=== PATIENT | female | born 1985 | race Caucasian/White ===

== ENCOUNTER → 2017-10-20 | Outpatient (CLI) | payer OTHER ==
[~2017-10-20] MED LIST: BCPILLS PO; CIPR-255 PO
== END | disposition home or self-care (01) ==
LOC: C.LABSPEC 15:42
PROVIDERS: ATTEND Obstetrics & Gynecology
DX: Z34.82 Encounter for supervision of other normal pregnancy, second trimester (principal); Z3A.00 Weeks of gestation of pregnancy not specified

== ENCOUNTER → 2017-10-26 | Outpatient (CLI) | payer OTHER ==
[2017-10-26 14:37] LABS: BASO % 0.1 %; BASO ABS # 0.01 K/uL (0-0.2); EOS % 0.5 %; EOS ABS # 0.05 K/uL (0-0.5); HEMATOCRIT 34.9 % (37-47); HEMOGLOBIN 11.9 g/dL (12.0-16.0); IG# 0.19 K/uL (0.00-0.02); LYMPH % 21.2 %; LYMPH ABS # 2.32 K/uL (1.2-3.4); MEAN CELL VOLUME 93.6 fL (80-100); MEAN CORPUSCULAR HEMOGLOBIN 31.9 pg (25-34); MEAN CORPUSCULAR HGB CONC 34.1 g/dl (32-36); MEAN PLATELET VOLUME 10.6 fL (7.4-10.4); MONO % 5.2 %; MONO ABS # 0.57 K/uL (0.11-0.59); NEUT % 71.3 %; NEUT ABS # 7.79 K/uL (1.4-6.5); PLATELET COUNT 160 K/uL (130-400); RED CELL DISTRIBUTION WIDTH CV 13.3 % (11.5-14.5); RED CELL DISTRIBUTION WIDTH SD 45.8 fL (36.4-46.3); WHITE BLOOD COUNT 10.93 K/uL (4.8-10.8)
== END | disposition home or self-care (01) ==
LOC: C.LAB1850 13:04
PROVIDERS: ATTEND Obstetrics & Gynecology
DX: Z34.81 Encounter for supervision of other normal pregnancy, first trimester (principal)

== ENCOUNTER 2018-01-04 23:39 | Inpatient (IN) | payer OTHER ==
[~2018-01-04] VITALS: Ht 165.1 cm; Wt 91.0 kg
[2018-01-04] MEDS ORDERED: LACTATED RINGER'S 1000ML 1,000 ML IV SCH (23:54)
[2018-01-04] MEDS ORDERED: LACTATED RINGER'S 1000ML 1,000 ML IV PRN (23:54)
[2018-01-04] MEDS ORDERED: OXYTOCIN 30 UNITS/500ML NSS IV ONE (23:56)
[2018-01-05 00:29] LABS: HEMATOCRIT 34.8 % (37-47); HEMOGLOBIN 11.9 g/dL (12.0-16.0); MEAN CELL VOLUME 93.3 fL (80-100); MEAN CORPUSCULAR HEMOGLOBIN 31.9 pg (25-34); MEAN CORPUSCULAR HGB CONC 34.2 g/dl (32-36); PLATELET COUNT 134 K/uL (130-400); RED CELL DISTRIBUTION WIDTH CV 13.6 % (11.5-14.5); RED CELL DISTRIBUTION WIDTH SD 46.4 fL (36.4-46.3); WHITE BLOOD COUNT 16.55 K/uL (4.8-10.8)
[2018-01-05] MEDS ORDERED: PENICILLIN G POTASSIUM IV 6 MU in DEXTROSE 5% 250ML 250 ML IV ONE (00:30)
[2018-01-05] MEDS ORDERED: LACTATED RINGER'S 1000ML 1,000 ML IV SCH (01:13)
[2018-01-05] MEDS ORDERED: SUPERCREAM 0.870 % 15GM JAR EXT PRN (01:15)
[2018-01-05] MEDS ORDERED: LANOLIN OINT EXT PRN (01:15)
[2018-01-05] MEDS ORDERED: OXYCODONE/ACETAMINOPHEN 5-325 TAB PO PRN (01:15)
[2018-01-05] MEDS ORDERED: DIPHTHERIA/TETANUS/PERTUSSIS 0.5 ML SYR/VIAL IM. ONE (01:15)
[2018-01-05] MEDS ORDERED: OXYTOCIN 30 UNITS/500ML NSS IV PRN (01:15)
[2018-01-05] MEDS ORDERED: ACETAMINOPHEN 325 MG TAB PO PRN (01:15)
[2018-01-05] MEDS ORDERED: BENZOCAINE 20% AER SPR 82.5 GM CAN EXT PRN (01:15)
[2018-01-05] MEDS ORDERED: HYDROCORTISONE ACETATE 25 MG SUPP PR PRN (01:15)
[2018-01-05 01:51] VITALS: Ht 165.1 cm; Wt 91.0 kg
--- NOTE | 2018-01-05 03:29 | DELIVERY SUMMARY ---
DATE OF OPERATION: 01/05/2018 VAGINAL DELIVERY NOTE: PREOPERATIVE DIAGNOSES: 1. Martell intrauterine at 40 and 4. 2. Spontaneous onset of labor. 3. Group B strep positive. 4. Precipitous labor. PROCEDURE: Spontaneous vaginal delivery. SURGEON: Galina Khan MD COPYWRITING INTERN: None. ESTIMATED BLOOD LOSS: 400 mL. COMPLICATIONS: None. DISPOSITION: Stable to labor and delivery. DESCRIPTION OF PROCEDURE: Aundrea is a 32-year-old G2, P1, who presented in active labor. She contacted me as the on-call physician to complain of contractions every 3-5 minutes and was asked to present to labor and delivery. When she arrived, she was assessed by nursing and found to be 9 cm. heart tones were category 1. I was contacted and came out to examine and admit the patient. Fairly shortly thereafter, she reached a complete dilation with an urge to push and she was coached through her second stage of labor. She was able to bring the baby's head to , although there were some variable decelerations for which face mask oxygen was applied. She was then able to deliver the head of the infant in an occiput anterior position. No nuchal cord was identified. Both shoulders and the remainder of the infant then delivered with no difficulty. Vigorous male was placed on the maternal abdomen while the cord was doubly clamped and cut by the father of the baby. The placenta delivered spontaneously and was intact with a 3-vessel cord. There were no lacerations of the cervix, vagina, or perineum; however, there was a separation of the right labia minora towards its anterior portion. This was hemostatic after a moment's application of pressure and I elected not to suture at this time. At the completion of delivery, the fundus is firm, lochia is minimal, and mother and were in good condition having tolerated delivery well. I attest to the content of the Intraoperative Record and any orders documented therein. Any exceptions are noted below. OSEID
[2018-01-05 04:00] VITALS: PULSE 112; TEMP 36.8
[2018-01-05] MEDS ORDERED: PENICILLIN G POTASSIUM IV 3 MU in DEXTROSE 5% 100ML 100 ML IV PRN (04:00)
[2018-01-05 08:00] VITALS: BP 106/68; PULSE 54; TEMP 36.5; O2SAT 100
[2018-01-05] MEDS: PRENATAL VITAMIN TAB PO SCH (08:04)
[2018-01-05] MEDS: DOCUSATE SODIUM 100 MG CAP PO SCH ×2 (08:04→19:50)
[2018-01-05] MEDS: IBUPROFEN 600 MG TAB PO PRN ×2 (08:05→18:30)
[2018-01-05 12:00] VITALS: BP 118/74; PULSE 71; TEMP 36.8; O2SAT 99
[2018-01-05 16:00] VITALS: BP 103/68; PULSE 62; TEMP 36.8
[2018-01-05 19:50] VITALS: BP 118/78; PULSE 65; TEMP 36.8
[2018-01-05 23:45] VITALS: BP 118/71; PULSE 71; TEMP 36.5
[2018-01-06 06:09] LABS: HEMATOCRIT 33.8 % (37-47); HEMOGLOBIN 11.4 g/dL (12.0-16.0)
--- NOTE | 2018-01-06 06:58 | Progress Note ---
Subjective Jan 06, 2018. Subjective conversation w/ patient, physical exam, chart review, lab review Ambulation: ambulating normally Voiding: no voiding problems Passing Gas: Yes Diet Tolerance: Regular Diet Lochia: Small Feeding Type: Breast Feeding Problem List Medical Problems: (1) Normal labor and delivery (2) Pneumonia (3) Tonsillectomy (4) [place] Teeth Removal Review of Systems Constitutional: No fever, No chills Respiratory: No cough, No wheezing, No shortness of breath Cardiac: No chest pain, No palpitations Abdomen: No nausea, No vomiting Female : No dysuria No headache Objective Vital Signs Date Time Temp Pulse Resp B/P (MAP) Pulse Ox O2 Delivery O2 Flow Rate FiO2 01/05/18 23:45 36.5 71 18 118/71 (87) Room Air 01/05/18 23:45 Room Air 01/05/18 19:50 36.8 65 18 118/78 (91) Room Air 01/05/18 16:00 Room Air 01/05/18 16:00 36.8 62 18 103/68 (80) Room Air 01/05/18 12:00 36.8 71 18 118/74 (89) 99 Room Air 01/05/18 08:00 36.5 54 18 106/68 (81) 100 Room Air 01/05/18 08:00 100 Room Air Physical Exam General Appearance: WELL-APPEARING, WD/WN Respiratory/Chest: lungs clear, normal breath sounds, no respiratory distress, no accessory muscle use Cardiovascular: regular rate, rhythm, no gallop, no murmur Fundus: Firm, Non-Tender, Relation to Umbilicus (inferior to umbilicus) Extremities: no calf tenderness Laboratory Results Last 24 Hours Test 01/06/18 05:41 Hemoglobin 11.4 g/dL Hematocrit 33.8 % Medications Current Inpatient Medications Medications (Trade) Dose Ordered Sig/Prudencio Route Start Time Stop Time Status Last Admin Dose Admin Penicillin G Potassium 3 mu/ Dextrose 106 ml @ 100 mls/hr Q4H PRN IV 01/05/18 04:00 01/07/18 03:59 Lactated Ringer's 1,000 ml @ 125 mls/hr Q8H IV 01/05/18 01:13 02/04/18 01:12 Oxytocin (Pitocin IV) 30 units UD PRN IV 01/05/18 01:15 02/04/18 01:14 Benzocaine (Dermoplast Aero Spr) 1 appln PRN PRN EXT 01/05/18 01:15 02/04/18 01:14 Cocaine HCl (Supercream 0.870% Cr) BID PRN EXT 01/05/18 01:15 01/19/18 01:14 Hydrocortisone Acetate (Anusol Hc Supp) 25 mg BID PRN TX 01/05/18 01:15 02/04/18 01:14 Lanolin (Lanolin Oint) PRN PRN EXT 01/05/18 01:15 02/04/18 01:14 Prenat Multivit/ Seat Nailer/Iron/Folic Ac ( Vitamin Tab) 1 tab DAILY PO 01/05/18 08:00 02/04/18 07:59 01/05/18 08:04 1 TAB Ibuprofen (Motrin Tab) 600 mg Q4H PRN PO 01/05/18 01:15 02/04/18 01:14 01/05/18 18:30 600 MG Acetaminophen (Tylenol Tab) 650 mg Q6H PRN PO 01/05/18 01:15 02/04/18 01:14 Oxycodone/ Acetaminophen (Percocet 5-325mg Tab) 1 tab Q4H PRN PO 01/05/18 01:15 01/19/18 01:14 Docusate Sodium (coLACE CAP) 100 mg BID PO 01/05/18 08:00 02/04/18 07:59 01/05/18 19:50 100 MG Assessment and Plan Problem List Medical Problems: (1) Normal labor and delivery (2) Pneumonia (3) Tonsillectomy (4) [place] Teeth Removal Post- Day#: 1 Continue Routine Care: - Vital signs reviewed and within normal limits - Encourage ambulation, breast feeding, monitor and control pain with PRN motrin - All question and concerns addressed Resident Physician Supervision Note: I interviewed and examined the patient. Discussed with Dr. Loaiza and agree with findings and plan as documented in the note. Any exceptions or clarifications are listed here: Routine care Documented By: Darren Finch
[2018-01-06] MEDS: PRENATAL VITAMIN TAB PO SCH (07:48)
[2018-01-06] MEDS: IBUPROFEN 600 MG TAB PO PRN (07:49)
[2018-01-06] MEDS: DOCUSATE SODIUM 100 MG CAP PO SCH ×2 (07:49→20:33)
[2018-01-06 08:00] VITALS: BP 119/79; PULSE 62; TEMP 36.4; O2SAT 100
[2018-01-06 15:31] VITALS: BP 113/70; PULSE 62; TEMP 36.6; O2SAT 99
[2018-01-06 23:00] VITALS: BP 120/78; PULSE 68; TEMP 36.5
--- NOTE | 2018-01-07 07:08 | Progress Note ---
Subjective Jan 07, 2018. Subjective conversation w/ patient, conversation w/ family, physical exam, chart review, lab review Ambulation: ambulating normally Voiding: no voiding problems Passing Gas: Yes Diet Tolerance: Regular Diet Lochia: Small Feeding Type: Breast Feeding Problem List Medical Problems: (1) Normal labor and delivery (2) Pneumonia (3) Tonsillectomy (4) [place] Teeth Removal Review of Systems Constitutional: No fever Respiratory: No shortness of breath Cardiac: No chest pain Abdomen: No nausea, No vomiting Female : No dysuria Objective Vital Signs Date Time Temp Pulse Resp B/P (MAP) Pulse Ox O2 Delivery O2 Flow Rate FiO2 01/06/18 23:00 36.5 68 18 120/78 (92) Room Air 01/06/18 23:00 Room Air 01/06/18 15:34 Room Air 01/06/18 15:31 36.6 62 16 113/70 (84) 99 Room Air 01/06/18 08:00 36.4 62 18 119/79 (92) 100 Room Air 01/06/18 08:00 Room Air Physical Exam General Appearance: WELL-APPEARING, WD/WN Respiratory/Chest: no respiratory distress, no accessory muscle use Extremities: normal inspection Medications Current Inpatient Medications Medications (Trade) Dose Ordered Sig/Prudencio Route Start Time Stop Time Status Last Admin Dose Admin Lactated Ringer's 1,000 ml @ 125 mls/hr Q8H IV 01/05/18 01:13 02/04/18 01:12 Oxytocin (Pitocin IV) 30 units UD PRN IV 01/05/18 01:15 02/04/18 01:14 Benzocaine (Dermoplast Aero Spr) 1 appln PRN PRN EXT 01/05/18 01:15 02/04/18 01:14 Cocaine HCl (Supercream 0.870% Cr) BID PRN EXT 01/05/18 01:15 01/19/18 01:14 Hydrocortisone Acetate (Anusol Hc Supp) 25 mg BID PRN DE 01/05/18 01:15 02/04/18 01:14 Lanolin (Lanolin Oint) PRN PRN EXT 01/05/18 01:15 02/04/18 01:14 Prenat Multivit/ Cylinder Grinder/Iron/Folic Ac ( Vitamin Tab) 1 tab DAILY PO 01/05/18 08:00 02/04/18 07:59 01/06/18 07:48 1 TAB Ibuprofen (Motrin Tab) 600 mg Q4H PRN PO 01/05/18 01:15 02/04/18 01:14 01/06/18 07:49 600 MG Acetaminophen (Tylenol Tab) 650 mg Q6H PRN PO 01/05/18 01:15 02/04/18 01:14 Oxycodone/ Acetaminophen (Percocet 5-325mg Tab) 1 tab Q4H PRN PO 01/05/18 01:15 01/19/18 01:14 Docusate Sodium (coLACE CAP) 100 mg BID PO 01/05/18 08:00 02/04/18 07:59 01/06/18 20:33 100 MG Assessment and Plan Problem List Medical Problems: (1) Normal labor and delivery (2) Pneumonia (3) Tonsillectomy (4) [place] Teeth Removal Post- Day#: 2 Continue Routine Care: - Vital signs reviewed and within normal limits - Discussed discharge instructions - Encourage ambulation, breast feeding - All questions and concerns addressed Resident Physician Supervision Note: I was present with Dr. Loaiza during the history and exam. I discussed the case with the resident and agree with the findings and plan as documented in the note. Any exceptions or clarifications are listed here: PPD#2 doing well. Discharge instructions reviewed. Documented By: Cookie Ram
--- NOTE | 2018-01-07 07:10 | Discharge Instructions ---
Discharge Instructions Date of Service Jan 07, 2018. Admission Reason for Admission: Normal Labor And Delivery Discharge Discharge Diagnosis / Problem: status post spontaneous vaginal delivery Discharge Goals Goal(s): Routine recovery after delivery Medications Continue Dispensed Medications: supercream, dermaplast, tucks, lansinoh Activity Recommendations Activity Limitations: per Instructions/Follow-up section . Instructions / Follow-Up Instructions / Follow-Up ACTIVITY RECOMMENDATIONS: * Gradual return to full activity over the next 2-3 weeks. * No lifting - nothing heavier than baby over the next 2-3 weeks. * Do not engage in vigorous exercise, sexual activity or sports until cleared by your physician. * Do not drive or operate any motorized equipment until cleared by your physician. * You may shower/bathe daily. MEDICATIONS: For discomfort or pain, you may use Acetaminophen (Tylenol), Ibuprofen (Advil), or Naproxen (Aleve) following the package directions. For constipation you may use Colace following the package directions. BREAST CARE: If you are not breast feeding: * Wear a supportive bra 24 hours a day for one to two weeks. * Avoid stimulating your breasts and nipples as much as possible during the first few weeks after delivery. * When taking a shower, have the warm water hit your back, not breasts. * When your breasts feel full, apply ice packs. Usually three to four times a day helps ease the discomfort. * Take a mild pain medication (Tylenol / Motrin) when you are uncomfortable. If breast feeding: * Use breast milk to lubricate nipples. Lansinoh cream may be used for sore nipples. You do not need to remove cream prior to breast feeding. If using a different brand of cream, check the label for directions regarding removal of cream prior to nursing. * Wear a supportive bra. * If having problems with breasts or breast feeding, call a edi consultant or your health care provider. EPISIOTOMY CARE: After delivery, if you have an episiotomy (stitches), the following steps will ease discomfort and aid healing. * For the first 24 hours after delivery, place ice packs next to your episiotomy to help reduce swelling. * After the first 24 hour-period, sitz baths, either portable or in the tub, are suggested. A shower with a shower arm sprayed over the episiotomy may be comforting. * [place]inda care should be done after each voiding and bowel movement. Squirt warm water from a plastic bottle over the perineum (region of the body between the anus and urinary opening) and pat dry. * Use Dermoplast to ease discomfort. Shake container. [employer] directly over the episiotomy. Place a Tucks on a clean sanitary pad next to your episiotomy. SPECIAL CARE INSTRUCTIONS: When you are discharged from the hospital, it is important for you to follow the instructions listed below: * During the first week at home, you should be able to care for yourself and your baby. In addition, the usual light household activities are encouraged. * Limit your activities to the way you feel. Do not try to clean the house or move furniture. Be sensible. * If you actively engage in sports and have done so up until the time of your delivery, you may resume these activities as soon as you feel able. This may take up to one month or even longer. Use good judgment. * Continue to take your vitamins for at least six weeks after the of your baby. * Your diet need not be limited unless you were on a special diet before your delivery. Breast-feeding mothers need around 2500 calories per day and at least 64-80 ounces of fluid per day (8 to 10 glasses). * You should eat foods from the four major food groups. Crash diets or fad diets are to be avoided. Eating lean meats, fresh fruits and vegetables, low-fat dairy products, high fiber foods and a regular exercise program, will help you get back to your pre- weight without putting your health at risk. * Constipation is sometimes a problem after delivery. Take a mild laxative as needed. If breast feeding, Milk of Magnesia is acceptable to use. You may use a suppository or Fleets enema if no episiotomy. * A daily shower or tub bath is suggested. Be sure to thoroughly and gently dry the perineum. * A bloody vaginal discharge will usually continue until around four weeks post . A small amount of bleeding may continue for as long as six weeks. Vaginal discharge changes from the bright red bleeding after delivery to pink then brownish and finally yellowish-pink before becoming white and disappearing. * Bleeding may increase with activity. Your first period may come in 4-8 weeks. If you are breast feeding, your period may be delayed even longer. * [place] (sex) can begin whenever both you and your partner feel comfortable and do not have any form of genital infection. It is recommended that you wait at least six weeks for internal and external healing to occur. If you have questions, please talk to your health care practitioner. A condom should be used to prevent infection and . * Foreplay, gentle intercourse and lubrication is very important the first several times to prevent pain. A water-based lubricant such as K-Y jelly or Astroglide may be used. * If you have RH negative blood and your baby is RH positive, you will receive RHOGAM by injection prior to discharge. The nurse will give you a card to keep with you that has the date and place that you received RHOGAM after delivery. * During your care, you had a Rubella screen done to check for the presence of rubella antibodies in your blood. If your test was negative, you will receive a Rubella vaccine prior to discharge. This vaccine may cause a fever, soreness at the injection site and flu-like symptoms. If these symptoms persist, notify your health care practitioner. is not advised for one month after a Rubella vaccine. * Verbalizes understanding of car seat law as reviewed with patient nursing. * Car Seat hand-out given and reviewed with patient by nursing. * Shaken baby information reviewed with patient by nursing. Call you doctor if: * Heavy bleeding (saturating several pads an hour) or passing clots the size of your fist. * A fever >101 degrees F (38.3 degrees C) on two occasions four hours apart and /or chills. * Unusual pain in the pelvic or vaginal areas. * "Baby Blues" lasting longer than two weeks. If you have any questions or concerns, call your health care practitioner at . FOLLOW UP VISIT: * Please call the office at to schedule a 6 week examination. It is important you keep this appointment. It is important for you to make arrangements for either yearly or twice yearly check-ups thereafter. Current Hospital Diet Patient's current hospital diet: Regular OB Diet Discharge Diet Recommended Diet: Regular Diet Pending Studies Studies pending at discharge: no Medical Emergencies . Who to Call and When: Medical Emergencies: If at any time you feel your situation is an emergency, please call 911 immediately. . Non-Emergent Contact Non-Emergency issues call your: Primary Care Provider . . "Provider Documentation" section prepared by Enrrique Loaiza. .
[2018-01-07] MEDS: IBUPROFEN 600 MG TAB PO PRN (08:01)
[2018-01-07] MEDS: DOCUSATE SODIUM 100 MG CAP PO SCH (08:01)
[2018-01-07] MEDS: PRENATAL VITAMIN TAB PO SCH (08:01)
[2018-01-07 08:30] VITALS: BP 116/78; PULSE 64; TEMP 36.5
[2018-01-07 12:12] VITALS: BP_SYST 116; O2SAT 99
[2018-01-07 13:40] VITALS: BP_DIAS 78; PULSE 64; TEMP 36.5
== END 2018-01-07 14:20 | disposition home or self-care (01) | DRG 775 ==
LOC: C.LD 23:39 → C.OPB 23:39 → C.LD 23:56 → C.OBG 01-05 04:23
PROVIDERS: ADMIT Obstetrics & Gynecology; ATTEND Obstetrics & Gynecology
PROC: 10E0XZZ Delivery of Products of Conception, External Approach (ICD-10-PCS; principal; 2018-01-05)
DX: O48.0 Post-term pregnancy (principal); O62.3 Precipitate labor; O99.824 Streptococcus B carrier state complicating childbirth; Z3A.40 40 weeks gestation of pregnancy; Z37.0 Single live birth

== ENCOUNTER 2020-01-09 16:37 | Inpatient (IN) ==
--- NOTE | 2020-01-09 16:57 | Emergency Department Note ---
History of Present Illness General Chief complaint: Cardiac Assessment Stated complaint: IRREGULAR HEART BEAT Time Seen by Provider: 01/09/20 16:41 Source: patient Mode of arrival: ambulatory Limitations: no limitations History of Present Illness Provider complaint: Irregular heartbeat Onset (ago): unknown Maximum Pain Intensity: 0 Associated symptoms: + chest pain; no cough, no diaphoresis, no fever/chills, no headaches, no nausea/vomiting, no syncope and no weakness Treatments prior to arrival: none This is a 34-year-old female who presents the emergency department after being referred by her family doctor for an irregular heartbeat that was noticed in the office. Patient states she called and went and she had had an episode of right rib pain last night. States the episode resolved with Aleve. States while she had the pain she felt slightly short of breath, however once the pain resolved she felt back to normal. Patient denies any recent fevers or chills, cough or cold symptoms. Patient states she has no current pain or difficulty breathing. No nausea or vomiting, no dizziness. Patient states she was told in the office she had an irregular heartbeat and this needed immediate evaluation. Patient denies any prior history of an irregular heartbeat. Patient denies any sense of racing, fluttering, or palpitations. States other members have had coronary artery disease in her family, however not until they were in their 70s. Patient denies any known coronavirus exposure. No change in caffeine use daily, she uses 3 cups of coffee. No recent change in alcohol. Patient states she feels as though she is staying well-hydrated. No history of thyroid dysfunction. No other change in activity. Pt seen during a time of high acuity and national emergency pandemic while wearing PPE. Home Medications Home Medications Medication Instructions Recorded Confirmed Type No Known Home Medications 01/09/20 01/09/20 History Allergies Allergy/AdvReac Type Severity Reaction Status Date / Time No Known Allergies Allergy Verified 01/09/20 17:42 Past Med/Surg History Medical History No known health problems Surgical History History of adenoidectomy History of tonsillectomy Family History Grandmother (Maternal) Diabetes Myocardial infarction Grandfather (Paternal) Myocardial infarction Mother Stroke Other Heart disease Denies family history of Breast cancer Colorectal cancer Social History Smoking Status: Current every day smoker Tobacco Type: Cigarettes Second Hand Exposure: No; Hx Alcohol Use: No Hx Substance Use: No Preferred Language: Polish Communication Ability: Effective Air Quality Technician Required: No Beliefs That Will Affect Care: None Current Living Situation: Family Feels Safe at Home: Yes Review of Systems See HPI for pertinent positives & negatives. and A total of 10 systems reviewed and were otherwise negative Physical Exam Vital Signs Vital Signs - 24 hr 01/09/20 16:41 01/09/20 16:55 01/09/20 18:09 Temperature 37 C Temperature Source Oral Pulse Rate 69 Pulse Rate [Left Finger] 60 Respiratory Rate 16 20 Respiratory Effort / Characteristics Respiratory Depth Blood Pressure 109/64 Blood Pressure [Left Arm] 105/68 Blood Pressure Mean 79 Blood Pressure Mean [Left Arm] 80 Pulse Oximetry 99 99 99 Oxygen Delivery Method Room Air Room Air Sepsis Recent Fever Within 48 Hours No Sepsis New/Unexplained Change in Mental Status No Sepsis Action Taken by Nursing No Action Required 01/09/20 19:24 01/09/20 21:00 Temperature Temperature Source Pulse Rate Pulse Rate [Left Finger] 66 50 L Respiratory Rate 18 18 Respiratory Effort / Characteristics Non-Labored Non-Labored Respiratory Depth Normal Normal Blood Pressure Blood Pressure [Left Arm] 108/64 116/71 Blood Pressure Mean Blood Pressure Mean [Left Arm] 78 86 Pulse Oximetry 100 95 Oxygen Delivery Method Room Air Room Air Sepsis Recent Fever Within 48 Hours Sepsis New/Unexplained Change in Mental Status Sepsis Action Taken by Nursing GENERAL: alert, well appearing, well nourished, no distress, non-toxic EYE EXAM: normal conjunctiva, PERRL and EOM's grossly intact OROPHARYNX: no exudate, no erythema, lips, buccal mucosa, and tongue normal and mucous membranes are moist NECK: supple, no nuchal rigidity, no adenopathy, non-tender LUNGS: Clear to auscultation. Normal chest wall mechanics, no w/r/r HEART: no murmurs, S1 normal and S2 normal, Normal sinus rhythm at 62 on telemetry with occasional PAC, no pain with palpation of ribs ABDOMEN: abdomen soft, RUQ tenderness on exam with mild splinting, normo-active bowel sounds, no masses, no rebound or guarding. BACK: Back is symmetrical on inspection and there is no deformity, no midline tenderness, no CVA tenderness. SKIN: no rashes and no bruising UPPER EXTREMITIES: upper extremities are grossly normal. FROM, nml pulses b/l. LOWER EXTREMITIES: No pitting edema. FROM, nml pulses b/l. NEURO EXAM: Normal sensorium, cranial nerves II-XII grossly intact, normal speech, no gross weakness of arms, no gross weakness of legs. Gross sensation intact. Course Course 1739: Pt updated on results. No change in condition, no new symptoms. 1849: Patient again updated on results. Vital signs stable. Tele with appearance on intermittent 2nd degree heart block. 1935: Patient denies any prior history of hepatitis or biliary disease. No family history of any congenital liver abnormalities. Patient denies any prior known diagnosis of Lyme disease. Patient states they do go to camp every summer and she is outside quite a bit. Patient states she has not noticed any recent insect or tick bites, no rash. 2001: Case discussed with Dr. Steinberg, cardiology. 2034: Case discussed with Dr. Castro, hospitalist. Administered Medications Ioversol (Optiray 320 125ml) 118 ml IV ONCE PRN PRN Reason: Interaction Checking Stop: 01/13/20 17:55 Last Admin: 01/09/20 17:56 Dose: 118 ml Documented by: [id number] Discontinued Medications Sodium Chloride (Nss 1000ml) 1,000 mls @ 250 mls/hr IV .Q4H [facility] Stop: 02/08/20 17:59 Last Admin: 01/09/20 22:54 Dose: Not Given Documented by: [id number] Infusion: 01/09/20 22:00 Dose: 0 mls/hr Documented by: [id number] Admin: 01/09/20 18:10 Dose: 250 mls/hr Documented by: [id number] Ceftriaxone Sodium (Rocephin) 2,000 mg in 70 mls @ 140 mls/hr IV NOW STA Stop: 01/09/20 19:31 Last Infusion: 01/09/20 19:54 Dose: 0 mls/hr Documented by: [id number] Admin: 01/09/20 19:24 Dose: 140 mls/hr Documented by: [id number] Critical Care Time Critical Care Time: Yes Total Critical Care Time: 47 Critical care of 47 min performed to assess and manage high likelihood of life- threatening dysrhythmia, involving labs/imaging performed with assessment to evaluate dysrhythmia diagnosis with frequent reassessment. This time includes bedside time, treatment discussions with patient/family/consultants, documentation time and excludes procedure time. Medical Decision Making Differential Diagnosis Differential diagnosis includes etiologies such as premature contractions, electrolyte abnormality, cardiac dysrhythmia, thyroid dysfunction, pulmonary embolism, infection, gastrointestinal, as well as others were entertained. Medical Records Attestation: I reviewed the patient's medical records. Home Medications Current Medication List: was personally reviewed by me Laboratory Data Attestation: I reviewed the patient's lab results. Result diagrams: 01/09/20 16:50 01/09/20 16:50 Lab Results 01/09/20 01/09/20 01/09/20 Range/Units 16:50 16:50 16:50 WBC 8.80 (4.8-10.8) K/uL RBC 4.27 (4.2-5.4) M/uL Hgb 13.2 (12.0-16.0) g/dL Hct 40.0 (37-47) % MCV 93.7 (80-100) fL MCH 30.9 (25-34) pg MCHC 33.0 (32-36) g/dL RDW Std Deviation 47.2 H (36.4-46.3) fL RDW Coeff of Kaur 13.7 (11.5-14.5) % Plt Count 227 (130-400) K/uL MPV 10.3 (7.4-10.4) fL Immature Gran % (Auto) 0.2 % Neut % (Auto) 71.0 % Lymph % (Auto) 18.8 % [place] % (Auto) 8.4 % Eos % (Auto) 1.4 % Baso % (Auto) 0.2 % Neut # (Auto) 6.25 (1.4-6.5) K/uL Lymph # (Auto) 1.65 (1.2-3.4) K/uL [place] # (Auto) 0.74 H (0.11-0.59) K/uL Eos # (Auto) 0.12 (0-0.5) K/uL Baso # (Auto) 0.02 (0-0.2) K/uL Immature Gran # (Auto) 0.02 (0.00-0.02) K/uL D-Dimer 3540 H* (0-500) ug/L FEU Sodium 139 (136-145) mmol/L Potassium 3.9 (3.5-5.1) mmol/L Chloride 107 (98-107) mmol/L Carbon Dioxide 28 (21-32) mmol/L Anion Gap 4.0 (3-11) BUN 13 (7-18) mg/dl Creatinine 0.82 (0.6-1.2) mg/dl Est Cr Clr Drug Dosing 91.3 ml/min Est GFR ( Amer) 107.5 Est GFR (Non-Af Amer) 92.7 BUN/Creatinine Ratio 15.7 (10-20) Glucose 99 (70-99) mg/dl Calcium 8.5 (8.5-10.1) mg/dl Magnesium 2.2 (1.8-2.4) mg/dl Total Bilirubin 0.4 (0.2-1) mg/dl AST 124 H (15-37) U/L ALT 253 H (12-78) U/L Alkaline Phosphatase 116 (45-117) U/L Troponin I < 0.015 (0-0.045) ng/ml NT-Pro-B Natriuret Pep 886 H (0-450) pg/ml Total Protein 7.3 (6.4-8.2) gm/dl Albumin 3.8 (3.4-5.0) gm/dl Globulin 3.5 (2.5-4.0) gm/dl Albumin/Globulin Ratio 1.1 (0.9-2) Lipase 119 (73-393) U/L TSH 1.450 (0.300-4.500) uIu/ml HCG, Qual (Negative) Lyme Disease IgG Ab (Negative) Lyme Disease IgM Ab (Negative) 01/09/20 Range/Units 16:50 WBC (4.8-10.8) K/uL RBC (4.2-5.4) M/uL Hgb (12.0-16.0) g/dL Hct (37-47) % MCV (80-100) fL MCH (25-34) pg MCHC (32-36) g/dL RDW Std Deviation (36.4-46.3) fL RDW Coeff of Kaur (11.5-14.5) % Plt Count (130-400) K/uL MPV (7.4-10.4) fL Immature Gran % (Auto) % Neut % (Auto) % Lymph % (Auto) % [place] % (Auto) % Eos % (Auto) % Baso % (Auto) % Neut # (Auto) (1.4-6.5) K/uL Lymph # (Auto) (1.2-3.4) K/uL [place] # (Auto) (0.11-0.59) K/uL Eos # (Auto) (0-0.5) K/uL Baso # (Auto) (0-0.2) K/uL Immature Gran # (Auto) (0.00-0.02) K/uL D-Dimer (0-500) ug/L FEU Sodium (136-145) mmol/L Potassium (3.5-5.1) mmol/L Chloride (98-107) mmol/L Carbon Dioxide (21-32) mmol/L Anion Gap (3-11) BUN (7-18) mg/dl Creatinine (0.6-1.2) mg/dl Est Cr Clr Drug Dosing ml/min Est GFR ( Amer) Est GFR (Non-Af Amer) BUN/Creatinine Ratio (10-20) Glucose (70-99) mg/dl Calcium (8.5-10.1) mg/dl Magnesium (1.8-2.4) mg/dl Total Bilirubin (0.2-1) mg/dl AST (15-37) U/L ALT (12-78) U/L Alkaline Phosphatase (45-117) U/L Troponin I (0-0.045) ng/ml NT-Pro-B Natriuret Pep (0-450) pg/ml Total Protein (6.4-8.2) gm/dl Albumin (3.4-5.0) gm/dl Globulin (2.5-4.0) gm/dl Albumin/Globulin Ratio (0.9-2) Lipase (73-393) U/L TSH (0.300-4.500) uIu/ml HCG, Qual Negative (Negative) Lyme Disease IgG Ab Positive A (Negative) Lyme Disease IgM Ab Positive A (Negative) Imaging Data Radiologist's Impression: XR chest 1V portable HISTORY: 34 years-old Female right rib pain acute right-sided rib pain COMPARISON: Chest radiograph 02/20/2013 TECHNIQUE: Portable AP view of the chest FINDINGS: Cardiomediastinal and hilar silhouettes are within normal limits. There is no pneumothorax, pleural effusion, airspace consolidation or overt pulmonary edema. Bones of the chest appear grossly intact. IMPRESSION: No acute process. ACT 112: Negative or not required by law. The above report was generated using voice recognition software. It may contain grammatical, syntax or spelling errors. Electronically signed by: Keron Patel M.D. 01/09/2020 5:[address] abdomen w IV con, CT angio chest PE protocol HISTORY: 34 years-old Female abn LFT's/RUQ pain acute right upper quadrant abdominal pain with elevated d-dimer and elevated LFTs. COMPARISON: CT abdomen pelvis 01/10/2014, CTA chest 02/20/2013 TECHNIQUE: CTA of the chest was obtained following the intravenous administration of 118 mL Optiray 320. 3-D coronal and sagittal MIPS were obtained from the axial data set and were symmetric for review. All measurements were obtained according to NASCET criteria. Additionally, CT abdomen with IV contrast only was utilized. A dose lowering technique was used consistent with the principals of ALARA. FINDINGS: CTA CHEST: The heart appears to be normal in size. No pericardial effusion. No thoracic aortic aneurysm or dissection. There is patency of the imaged great vessels. The pulmonary arterial tree is opacified to the level of the proximal subsegmental branches and demonstrates no filling defects to suggest thromboembolic disease. CT CHEST: Multinodular thyroid, largest nodule involves the right thyroid measuring up to 1.4 cm. No adenopathy. No pneumothorax, pleural effusion, overt pulmonary edema or airspace consolidation typical for pneumonia. No suspicious pulmonary nodules or masses. The central airways appear patent. Soft tissues of the chest and breast parenchyma appear unremarkable. Mild generalized body wall edema. Bones appear intact. CT ABDOMEN: There is no pneumatosis or pneumoperitoneum. The spleen and pancreas appear unremarkable. The adrenal glands are also within normal limits. Unremarkable ga llbladder. Diffusely heterogeneous appearance of the liver with moderate periportal edema. Small volume of perihepatic predominant ascites. Portal vein appears patent. Symmetric enhancement of the kidneys. Mild dilation of the bilateral gonadal veins. Aorta is unremarkable. Mild distention of the IVC. No adenopathy. No bowel obstruction or bowel wall thickening. The appendix is not definitively i rebecca. Mild generalized body wall edema. Minimal lumbar levoscoliosis. Bones appear intact. IMPRESSION: 1. No acute intrathoracic abnormality, specifically there is no evidence of pulmonary thromboembolic disease. 2. Nonspecific diffusely heterogeneous appearance of the liver with periportal edema and small volume of abdominal ascites. Correlate with LFTs to exclude hepatitis. 3. No cholelithiasis or biliary ductal dilation identified. 4. No bowel obstruction or bowel wall thickening. ACT 112: Negative or not required by law. The above report was generated using voice recognition software. It may contain grammatical, syntax or spelling errors. Electronically signed by: Keron Patel M.D. 01/09/2020 7:21 PM ECG Data Attestation: I personally reviewed and interpreted this ECG as follows: Indication: + palpitations Rate (beats per minute): 66 Rhythm: + normal sinus ECG Intervals/blocks: + First degree AV block ECG [place]: + Right axis deviation Additional Comments: Repeat EKG at 1948 shows a sinus rhythm at 62, first-degree AV block, normal QRS and QTc with a normal axis, however does appear the patient intermittently has a second-degree Mobitz type I heart block. This is better seen on other telemetry strips. Blood Pressure Blood Pressure Findings: Normal blood pressure MDM Narrative Patient sent in after outpatient evaluation for brief episode of chest pain w hich resolved spontaneously after an abnormal EKG was found. Upon arrival here patient appeared to have a sinus rhythm with occasional sinus arrhythmia. Patient was asymptomatic. No prior cardiac history in her or significant early onset in family. Patient denied any recent illness or exposures. Labs drawn and sent as a precaution, chest x-ray performed. While patient was low risk based on PERC criteria, given new dysrhythmia, a d-dimer was sent and was elevated. Patient was also noted to have elevated transaminases. Patient's other labs are reassuring. Chest x-ray was reassuring. Discussed with her possible biliary colic given right upper quadrant discomfort with testing. Patient sent for CT angio of the chest to rule out PE, and a CT of the abdomen was added to evaluate the liver and biliary structures. I had initially ordered a Lyme disease due to patient's potential new dysrhythmia as a precaution given our endemic location, despite patient stating she had no concern for risk or exposure. Patient's Lyme was positive both IgG and IgM. Patient denied any prior history of Lyme diagnosis. After the additional CT imaging was reassuring, I discussed my concerns with the check examiner for a possible evolving Lyme carditis. Upon additional observation while patient was hooked up to telemetry, patient appeared to be intermittently having second-degree heart block. Cardiology agreed with this finding. Given my concern after the positive lab test, I had already given the patient 2 g of IV Rocephin to start treatment. I discussed all the results with the patient at bedside, discussed my concerns and she verbalized understanding. Case discussed with hospitalist for additional management. An order was placed for continuous cardiac monitoring. The monitor shows a rate of _56_ with sinus bradycardia_ rhythm. Impression & Plan Lyme carditis, Abnormal ECG, Transaminitis, Heart block AV second degree, Lyme disease, Abdominal pain, LUQ Discharge Plan Visit Data *Final* Discharge Date/Time: 01/09/20 22:00 Chief Complaint: Cardiac Assessment Stated Complaint: IRREGULAR HEART BEAT ED Provider: Vanita Villeda Discharge Problem: Lyme carditis, Abnormal ECG, Transaminitis, Heart block AV second degree, Lyme disease, Abdominal pain, LUQ Patient Disposition: Admitted As Inpatient Discharge Instructions Interventions: ED Discharge Assessment Last Done: 01/09/20 22:00
[2020-01-09 17:01] LABS: Basophils # (auto) 0.02 K/uL (0-0.2); Basophils % (auto) 0.2 %; Eosinophils # (auto) 0.12 K/uL (0-0.5); Eosinophils % (auto) 1.4 %; Hemoglobin 13.2 g/dL (12.0-16.0); Immature Granulocytes # (auto) 0.02 K/uL (0.00-0.02); Immature Granulocytes % (auto) 0.2 %; Lymphocytes # (auto) 1.65 K/uL (1.2-3.4); Lymphocytes % (auto) 18.8 %; Mean Corpuscular Hemoglobin 30.9 pg (25-34); Mean Corpuscular Volume 93.7 fL (80-100); Mean Platelet Volume 10.3 fL (7.4-10.4); Monocytes # (auto) 0.74 K/uL (0.11-0.59); Monocytes % (auto) 8.4 %; Neutrophils # (auto) 6.25 K/uL (1.4-6.5); Platelet Count 227 K/uL (130-400); RDW Coefficient of Variation 13.7 % (11.5-14.5); RDW Standard Deviation 47.2 fL (36.4-46.3); Red Blood Count 4.27 M/uL (4.2-5.4)
[2020-01-09 17:18] LABS: Alanine Aminotransferase 253 U/L (12-78); Albumin Level 3.8 gm/dl (3.4-5.0); Aspartate Aminotransferase 124 U/L (15-37); BUN Creatinine Ratio 15.7 (10-20); Blood Urea Nitrogen 13 mg/dl (7-18); Calcium 8.5 mg/dl (8.5-10.1); Carbon Dioxide 28 mmol/L (21-32); Chloride 107 mmol/L (98-107); Creatinine Clr Calc Pharmacy 91.3 ml/min; Est GFR (African American) 107.5; Est GFR (Non-African American) 92.7; Glucose 99 mg/dl (70-99); Lipase 119 U/L (73-393); Magnesium 2.2 mg/dl (1.8-2.4); Potassium 3.9 mmol/L (3.5-5.1); Sodium 139 mmol/L (136-145)
[2020-01-09 17:22] LABS: Pregnancy Test, Serum Negative (Negative)
--- NOTE | 2020-01-09 17:22 | XRay Report ---
XR chest 1V portable HISTORY: 34 years-old Female right rib pain acute right-sided rib pain COMPARISON: Chest radiograph 02/20/2013 TECHNIQUE: Portable AP view of the chest FINDINGS: Cardiomediastinal and hilar silhouettes are within normal limits. There is no pneumothorax, pleural e ffusion, airspace consolidation or overt pulmonary edema. Bones of the chest appear grossly intact. IMPRESSION: No acute process. ACT 112: Negative or not required by law. The above report was generated using voice recognition software. It may contain grammatical, syntax o r spelling errors. Electronically signed by: Keron Patel M.D. 01/09/2020 5:21 PM
[2020-01-09 17:29] LABS: Albumin Globulin Ratio 1.1 (0.9-2); Alkaline Phosphatase 116 U/L (45-117); Bilirubin,Total 0.4 mg/dl (0.2-1); Globulin 3.5 gm/dl (2.5-4.0); NT Pro B Type Natriuretic Pept 886 pg/ml (0-450); Total Protein 7.3 gm/dl (6.4-8.2); Troponin I < 0.015 ng/ml (0-0.045)
[2020-01-09 17:31] LABS: D Dimer 3540 ug/L FEU (0-500)
[2020-01-09 17:54] LABS: Lyme Ab IgG w/WB Rflx Positive (Negative); Lyme Ab IgM w/WB Rflx Positive (Negative)
[2020-01-09] MEDS ORDERED: OPTIRAY 320 125ml IV PRN (17:56)
[2020-01-09] MEDS: SODIUM CHLORIDE 0.9% 1000ML 1,000 ML IV SCH ×2 (18:10→22:54)
[2020-01-09] MEDS ORDERED: cefTRIAXone SODIUM 2,000 MG/70 ML BAG IV STA (19:02)
--- NOTE | 2020-01-09 19:22 | CT Scan Report ---
CT abdomen w IV con, CT angio chest PE protocol HISTORY: 34 years-old Female abn LFT's/RUQ pain acute right upper quadrant abdominal pain with eleva ko d-dimer and elevated LFTs. COMPARISON: CT abdomen pelvis 01/10/2014, CTA chest 02/20/2013 TECHNIQUE: CTA of the chest was obtained following the intravenous administration of 118 mL Optiray 3 20. 3-D coronal and sagittal MIPS were obtained from the axial data set and were symmetric for review . All measurements were obtained according to NASCET criteria. Additionally, CT abdomen with IV contr ast only was utilized. A dose lowering technique was used consistent with the principals of ELIZA. FINDINGS: CTA CHEST: The heart appears to be normal in size. No pericardial effusion. No thoracic aortic aneurysm or disse ction. There is patency of the imaged great vessels. The pulmonary arterial tree is opacified to the level of the proximal subsegmental branches and demonstrates no filling defects to suggest thromboemb olic disease. CT CHEST: Multinodular thyroid, largest nodule involves the right thyroid measuring up to 1.4 cm. No adenopathy . No pneumothorax, pleural effusion, overt pulmonary edema or airspace consolidation typical for pneu monia. No suspicious pulmonary nodules or masses. The central airways appear patent. Soft tissues of the chest and breast parenchyma appear unremarkable. Mild generalized body wall edema. Bones appear i ntact. CT ABDOMEN: There is no pneumatosis or pneumoperitoneum. The spleen and pancreas appear unremarkable. The adrena l glands are also within normal limits. Unremarkable gallbladder. Diffusely heterogeneous appearance of the liver with moderate periportal edema. Small volume of perihepatic predominant ascites. Portal vein appears patent. Symmetric enhancement of the kidneys. Mild dilation of the bilateral gonadal veins. Aorta is unremark able. Mild distention of the IVC. No adenopathy. No bowel obstruction or bowel wall thickening. The a ppendix is not definitively imaged. Mild generalized body wall edema. Minimal lumbar levoscoliosis. B ones appear intact. IMPRESSION: 1. No acute intrathoracic abnormality, specifically there is no evidence of pulmonary thromboembolic disease. 2. Nonspecific diffusely heterogeneous appearance of the liver with periportal edema and small volume of abdominal ascites. Correlate with LFTs to exclude hepatitis. 3. No cholelithiasis or biliary ductal dilation identified. 4. No bowel obstruction or bowel wall thickening. ACT 112: Negative or not required by law. The above report was generated using voice recognition software. It may contain grammatical, syntax o r spelling errors. Electronically signed by: Keron Patel M.D. 01/09/2020 7:21 PM
--- NOTE | 2020-01-09 21:21 | History & Physical Report ---
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 ? Lyme Carditis: - Patient with cardiac conduction abnormality on EKG in ED as well as in primary care office today. - Troponin normal, pro-BNP elevated at ~800. - Lyme IgG and IgM antibodies positive in ED. - Rocephin 2g given; will continue Rocephin 2g IV daily for Lyme disease treatment. - Cardiology aware and will see in AM and perform Echo. Transaminitis with RUQ pain: - On arrival patient's AST 124, ALT 253. - CTAP without evidence of cholecystitis; shows nonspecific diffusely heterogeneous liver with periportal edema and small volume of abdominal ascites. - No history of liver disease, does not drink alcohol. - Suspect elevation in LFTs and abdominal pain are 2/2 Lyme disease. Patient does not recall Tick bite however spends a lot of time outside near wooded areas. - Will trend LFTs; if they continue to be elevated despite treatment for Lyme disease would need to consider other causes of transaminitis, including viral hepatitis. Multiple thyroid nodules: - Patient without history of thyroid disease. - Normal TSH in ED. - CT chest showed multinodular thyroid, with largest nodule involving the right thyroid measuring up to 1.4 cm. - Patient may need follow up imaging in outpatient setting to follow thyroid nodules. Code Status: FULL CODE FEN/GI: Regular DVT ppx: low risk given age, no other comorbidities; SCDs Dispo: PCU Telemetry for cardiac monitoring, Echo AM and Cardiology evaluation (2) Transaminitis: (3) Elevated d-dimer: (4) Abnormal cardiac conduction: (5) RUQ pain: (6) Thyroid nodule: History of Present Illness Chief Complaint: cardiac conduction abnormality on EKG Primary Care Provider: NO PCP 34 yo F no significant PMHx presented to ED from primary care office for abnormal EKG in office. She reports that for two days she has had "intermittent R lower rib pain" that will improve with Aleve, with associated pain with deep inspiration but no CP or baseline SOB. However she felt "something was not right" and so she went to primary care office who found she had "irregular rhythm and conduction abnormality" on EKG and sent her to ED. In ED found to have intermittent 2nd degree heart block both on telemetry and on EKG, transaminitis, elevated d-dimer without evidence of PE on CTA, CTAP with mild ascites and periportal edema, CXR negative for acute process. Lyme IgG and IgM antibodies positive. Patient does not recall being bitten by a tick, and does not recall a rash, however does spend a lot of time outside and near wooded areas. On time of interview patient does not endorse CP, SOB, recent fevers or chills, nausea or vomiting, constipation or diarrhea, headaches or dizziness, muscle aches. Case discussed with Cardiology (Dr. Steinberg) and hospitalist service consulted for admission for continuous cardiac monitoring, Echo and Cardiology consult AM, IV Abx for suspected Lyme carditis. Allergies Allergy/AdvReac Type Severity Reaction Status Date / Time No Known Allergies Allergy Verified 01/09/20 17:42 Home Medications Home Medications Medication Instructions Recorded Confirmed Type No Known Home Medications 01/09/20 01/09/20 History Past Med/Surg History Medical History No known health problems Surgical History History of adenoidectomy History of tonsillectomy Family History Grandmother (Maternal) Diabetes Myocardial infarction Grandfather (Paternal) Myocardial infarction Mother Stroke Other Heart disease Denies family history of Breast cancer Colorectal cancer Social History Smoking Status: Current every day smoker Tobacco Type: Cigarettes Second Hand Exposure: No; Hx Alcohol Use: No Hx Substance Use: No Preferred Language: Filipino Communication Ability: Effective Bull Riveter Required: No Beliefs That Will Affect Care: None Current Living Situation: Family Feels Safe at Home: Yes Review of Systems Review of Systems: All systems reviewed & are unremarkable except as noted in HPI & below Physical Exam Constitutional: WD/WN, vitals as above Eyes: PERRL, conjunctivae normal, anicteric sclerae ENMT: external ear and nose normal, oropharynx normal Neck: normal visual inspection Respiratory: normal respiratory effort; no respiratory distress and no cough Auscultation: + wheezes (right lung base); no crackles Cardiovascular: HR regularly irregular, no murmurs appreciated, no peripheral edema Gastrointestinal (Abdomen): Inspection/Auscultation: normal bowel sounds; abdomen not distended Percussion/Palpation: + abdomen tender (RUQ) and abdomen soft; no guarding Musculoskeletal: no cyanosis or clubbing, extremities motor strength 5/5 Skin: no rashes, warm and dry Neurologic: AAOx3, normal speech. PERRLA, EOMI, no nystagmus. Normal visual acuity bilaterally. Bilateral UE, LE, and face without sensory or motor deficits. No tremor. Psychiatric: A+Ox3, euthymic affect Results & Data Results & Data ([facility]) Vital Signs (Past 12 Hours) Vital Signs Temp Pulse Pulse Resp BP BP Pulse Ox 01/09/20 21:00 50 L 18 116/71 95 01/09/20 19:24 66 18 108/64 100 01/09/20 18:09 60 20 105/68 99 01/09/20 16:55 99 01/09/20 16:41 37 C 69 16 109/64 99 Code Status & VTE Plan VTE Prophylaxis Plan VTE Prophylaxis will be ordered: Yes Supervising Physician Co-Signing Physician Notes Patient seen and examined, chart reviewed, case discussed with Dr. Reyes and I agree with her assessment and plan as documented above. Briefly, patient is a 34yo C female presenting with RUQ pain. She was seen at Urgent Care and found to have conduction abnormality noted on EKG. Workup here revealed Mobitz II abnormality and positive Lyme testing. On exam she is afebrile, HD stable, NAD Skin - no rash HEENT - NC/AT, PERRL, MMM, Neck supple Heart - +S1/S2, regular, bradycardic with occasional ectopy Lungs - CTA Abd - +RUQ tenderness, no ascites Ext - No edema Labs and images reviewed. Assessment/Plan - suspect Lyme carditis and hepatitis -Treatment with IV Ceftriaxone --> Doxy -Telemetry monitoring -Echo in AM -Repeat LFTs in AM. If worsening would send acute hepatitis panel as well -Remainder of plan as above Resident Activity Tracking Resident Involvement: Resident Care Provided Care Provided: Adult [facility]
--- NOTE | 2020-01-09 22:23 | Billing Data ---
Date of Service January 09, 2020 Coding Level of Care Code 77034 Initial Inpt Care Lvl 2
[2020-01-10] MEDS ORDERED: ACETAMINOPHEN 325 MG TAB PO PRN ×2 (02:00→02:02)
[2020-01-10] MEDS ORDERED: SODIUM CHLORIDE 0.9% 1000ML 250 ML IV ONE (02:00)
[2020-01-10] MEDS ORDERED: KETOROLAC TROMETHAMINE 15 MG/ML VIAL IV ONE (02:03)
[2020-01-10 06:54] LABS: INR 1.1 (0.9-1.1); Prothrombin Time 11.8 Seconds (9.0-12.0)
[2020-01-10 07:08] LABS: Basophils # (auto) 0.01 K/uL (0-0.2); Basophils % (auto) 0.1 %; Eosinophils # (auto) 0.04 K/uL (0-0.5); Eosinophils % (auto) 0.4 %; Hemoglobin 12.3 g/dL (12.0-16.0); Immature Granulocytes # (auto) 0.02 K/uL (0.00-0.02); Immature Granulocytes % (auto) 0.2 %; Lymphocytes # (auto) 1.45 K/uL (1.2-3.4); Lymphocytes % (auto) 14.4 %; Mean Corpuscular Hemoglobin 30.9 pg (25-34); Mean Corpuscular Hgb Conc 33.2 g/dL (32-36); Mean Platelet Volume 10.8 fL (7.4-10.4); Monocytes # (auto) 0.51 K/uL (0.11-0.59); Monocytes % (auto) 5.1 %; Neutrophils # (auto) 8.06 K/uL (1.4-6.5); Neutrophils % (auto) 79.8 %; Platelet Count 199 K/uL (130-400); RDW Coefficient of Variation 13.6 % (11.5-14.5); RDW Standard Deviation 46.5 fL (36.4-46.3); Red Blood Count 3.98 M/uL (4.2-5.4); White Blood Count 10.09 K/uL (4.8-10.8)
[2020-01-10 07:19] LABS: Albumin Level 3.2 gm/dl (3.4-5.0); BUN Creatinine Ratio 14.5 (10-20); Calcium 8.5 mg/dl (8.5-10.1); Creatinine Clr Calc Pharmacy 108.9 ml/min; Est GFR (African American) 127.9; Est GFR (Non-African American) 110.4; Potassium 4.4 mmol/L (3.5-5.1)
[2020-01-10 07:22] LABS: Albumin Globulin Ratio 1.1 (0.9-2); Bilirubin,Total 0.7 mg/dl (0.2-1); Total Protein 6.2 gm/dl (6.4-8.2)
--- NOTE | 2020-01-10 08:27 | Hospitalist Progress Note ---
Date of Service January 10, 2020 Assessment & Plan (1) Lyme carditis: 34y/o healthy female. Referred to ED by PCP for abnormal ECG and bradycardia. Lyme Carditis: - Patient with cardiac conduction abnormality on EKG in ED and improving bradycardia - Troponin normal, pro-BNP elevated at ~800. - Lyme IgG and IgM antibodies positive in ED. - Rocephin 2g daily - TTE shows normal wall size and function, normal EF Transaminitis with RUQ pain: - On arrival patient's AST 124, ALT 253. - CT-AP: No evidence of cholecystitis; diffusely heterogeneous liver with periportal edema and small volume of abdominal ascites. - No history of liver disease, does not drink alcohol. - May be 2/2 Lyme. - Trend LFTs; - Consider alternative dx if not improving with lyme treatment Thyroid nodules: - No prior hx of thyroid disease - Normal TSH in ED. - CT chest showed multinodular thyroid, with largest nodule involving the right thyroid measuring up to 1.4 cm. - Followup as outpatient Code Status: FULL CODE FEN/GI: Regular DVT ppx: low risk given age, no other comorbidities; SCDs Dispo: PCU (2) Transaminitis: Admission and Anticipated Discharge Date Admission Date: January 09, 2020 Supervising Physician Co-Signing Physician Notes Resident Physician Supervision Note: I independently interviewed and examined the patient and verified the rajan history and physical, reviewed labs and image studies, discussed the case with the resident Dr. Louis and agree with the findings and care plan. Subjective Nursing message this AM stated that pt's HR dipped to 30s. Pt denies chest pain this AM. States some occasional R rib tenderness if palpating that area deeply. Had headache that has resolved after starting breakfast. Was descried as temporal, bilateral, and sharp. She has had hx of similar. ROS negative for other complaints. No palpitations, fever/chills, vision changes, dizziness, cp/sob, abd pain, numbness/tingling. Review of Systems Review of Systems: Constitutional: Denies fever, chills Cardiovascular: Denies Chest pain Respiratory: Denies shortness of breath, cough Gastrointestinal: Denies abdominal pain, nausea, vomiting, constipation, diarrhea Genitourinary: Denies urinary symptoms including dysuria Musculoskeletal: Denies weakness, muscle aches/pain, joint aches/pain Integumentary:Denies rash, lesions, bruising Neurological: Denies numbness, tingling, focal weakness Physical Exam Physical Exam: General: A&Ox3. NAD. Cooperative. HEENT: Atraumatic, normocephalic. Pulm: CTAB A&P. -wheezes, -rales, -rhonchi. Symmetrical chest rise. No increase work of breathing. No respiratory distress. Cardiac: bradycardic, -mrg. No carotid bruits. Extremities: Intact, moving all extremities equally. No LE edema. Results & Data Results & Data ([facility]) Vital Signs (Past 12 Hours) Vital Signs Temp Pulse Pulse Pulse Resp BP Pulse Ox 01/10/20 08:00 36.8 C 44 L 16 97/61 L 98 01/10/20 03:21 36.9 C 44 L 18 98/61 L 97 01/10/20 02:28 45 L 94/61 L 01/10/20 02:07 48 L 18 104/68 99 01/10/20 02:00 46 L 20 89/57 L 98 01/10/20 01:55 46 L 18 105/69 99 01/10/20 01:50 47 L 109/74 98 01/10/20 01:45 44 L 94/63 L 01/10/20 01:34 37.3 C 47 L 18 86/49 L 99 01/09/20 23:25 36.9 C 52 L 16 109/70 98 01/09/20 22:50 01/09/20 22:44 48 L 01/09/20 22:25 36.5 C 43 L 17 102/68 97 01/09/20 21:32 57 L 18 108/47 L 97 01/09/20 21:00 50 L 18 116/71 95 Pulse Ox 01/10/20 08:00 01/10/20 03:21 01/10/20 02:28 01/10/20 02:07 01/10/20 02:00 01/10/20 01:55 01/10/20 01:50 01/10/20 01:45 01/10/20 01:34 01/09/20 23:25 01/09/20 22:50 99 01/09/20 22:44 01/09/20 22:25 01/09/20 21:32 01/09/20 21:00
--- NOTE | 2020-01-10 11:27 | Cardiology Consultation ---
Date of Consultation January 10, 2020 Assessment & Plan (1) Lyme disease: (2) Lyme carditis: 1. Lyme disease 2. Heart block Patient is a healthy 34 year old female who was admitted yesterday with Lyme disease and associated heart block. Telemetry and EKGs reviewed. She has evidence of second degree heart block, possible brief period of complete heart block overnight. Fortunately this appears to be improving as expected with treatment of her Lyme disease. Unlikely she will require a pacemaker. Troponin negative and echo with normal LV function and wall motion. She is only minimally symptomatic at this point, would continue to monitor her on telemetry until conduction abnormality completely resolves. Supervising Physician Co-Signing Physician Notes The patient was seen and examined, the consultation was reviewed with Mehnaz. Agree with observation and continued antibiotics, most likely cause of AV block is Lyme disease. History of Present Illness Reason for Consultation: Heart block Attending Physician: Florina Devi MD History of Present Illness Ms. Otero is a 34 year old female being seen in the setting of heart block. Medical history significant for arthritis, tobacco use. Patient developed right sided and central chest pain with shortness of breath Wednesday evening. Yesterday she saw her PCP who noted an irregular heart rhythm and sent her to [facility] emergency department. EKG in the ED consistent with second degree heart block. Lyme IgG and IgM antibodies positive and she was started on IV Rocephin. Labs otherwise remarkable for transaminitis. Troponin negative. CTA shows nonspecific appearance of the liver with periportal edema and small volume ascites. Chest xray unremarkable. Patient does not recall any recent tick bite or rash but does spend time at her boyfriend's camp in the [facility]. No other presenting symptoms aside from chest pain and dyspnea. No rash. Currently feeling much better. No chest pain. Able to walk to the restroom without exertional dyspnea. No orthopnea, PND or edema. No palpitations, lightheadedness, near syncope or syncope. Family history: Mother with history of CVA. Father committed suicide. Social history: Single, 2 children. Smokes 1/2 pack per day. Denies significant alcohol use. No drug use. Allergies Allergy/AdvReac Type Severity Reaction Status Date / Time No Known Allergies Allergy Verified 01/09/20 17:42 Home Medications Home Medications Medication Instructions Recorded Confirmed Type No Known Home Medications 01/09/20 01/09/20 History Patient History Medical History No known health problems Surgical History History of adenoidectomy History of tonsillectomy Family History Grandmother (Maternal) Diabetes Myocardial infarction Grandfather (Paternal) Myocardial infarction Mother Stroke Other Heart disease Denies family history of Breast cancer Colorectal cancer Social History Smoking Status: Current every day smoker Tobacco Type: Cigarettes Second Hand Exposure: No; Hx Alcohol Use: No Hx Substance Use: No Preferred Language: Malagasy Communication Ability: Effective Turf Keeper Required: No Beliefs That Will Affect Care: None Current Living Situation: Family Feels Safe at Home: Yes Review of Systems Review of Systems: All systems reviewed & are unremarkable except as noted in HPI & below Physical Exam Physical Exam: General: No acute distress, comfortable. HEENT: Head is normal. PERRLA. EOMI. Sclerae anicteric. Ears, nose and throat unremarkable. Mucous membranes moist. Neck: Normal carotid upstrokes, no bruits. No appreciable JVD. Lungs: Clear to auscultation bilaterally without rales, rhonchi or wheezes. Cardiac: Bradycardic. S1-S2 normal. No appreciable murmur, gallop or rub. Abdomen: Soft and nontender. Bowel sounds normal. No mass or organomegaly. No abdominal bruit. Extremities/vascular: Well perfused. No peripheral edema. Radial, DP and PT pulses 2+ bilaterally Skin: No rash or abnormal lesions. Normal turgor. Neurologic: Nonfocal Psychiatric: Affect appropriate. Alert and oriented. Results & Data ([facility]) Vital Signs (Past 12 Hours) Vital Signs Temp Pulse Pulse Resp BP Pulse Ox 01/10/20 08:00 36.8 C 44 L 16 97/61 L 98 01/10/20 03:21 36.9 C 44 L 18 98/61 L 97 01/10/20 02:28 45 L 94/61 L 01/10/20 02:07 48 L 18 104/68 99 01/10/20 02:00 46 L 20 89/57 L 98 01/10/20 01:55 46 L 18 105/69 99 01/10/20 01:50 47 L 109/74 98 01/10/20 01:45 44 L 94/63 L 01/10/20 01:34 37.3 C 47 L 18 86/49 L 99 01/09/20 23:25 36.9 C 52 L 16 109/70 98 Laboratory Results Laboratory Results - last 24 hr 01/09/20 01/09/20 01/09/20 16:50 16:50 16:50 WBC 8.80 RBC 4.27 Hgb 13.2 Hct 40.0 MCV 93.7 MCH 30.9 MCHC 33.0 RDW Std Deviation 47.2 H RDW Coeff of Kaur 13.7 Plt Count 227 MPV 10.3 Immature Gran % (Auto) 0.2 Neut % (Auto) 71.0 Lymph % (Auto) 18.8 [place] % (Auto) 8.4 Eos % (Auto) 1.4 Baso % (Auto) 0.2 Neut # (Auto) 6.25 Lymph # (Auto) 1.65 [place] # (Auto) 0.74 H Eos # (Auto) 0.12 Baso # (Auto) 0.02 Immature Gran # (Auto) 0.02 PT INR D-Dimer 3540 H* Sodium 139 Potassium 3.9 Chloride 107 Carbon Dioxide 28 Anion Gap 4.0 BUN 13 Creatinine 0.82 Est Cr Clr Drug Dosing 91.3 Est GFR ( Amer) 107.5 Est GFR (Non-Af Amer) 92.7 BUN/Creatinine Ratio 15.7 Glucose 99 Calcium 8.5 Magnesium 2.2 Total Bilirubin 0.4 AST 124 H ALT 253 H Alkaline Phosphatase 116 Troponin I < 0.015 NT-Pro-B Natriuret Pep 886 H Total Protein 7.3 Albumin 3.8 Globulin 3.5 Albumin/Globulin Ratio 1.1 Lipase 119 TSH 1.450 HCG, Qual Lyme Disease IgG Ab Lyme IgG (Western Blot) Lyme IgG 18 kDa Band Lyme IgG 23 kDa Band Lyme IgG 28 kDa Band Lyme IgG 30 kDa Band Lyme IgG 39 kDa Band Lyme IgG 41 kDa Band Lyme IgG 45 kDa Band Lyme IgG 58 kDa Band Lyme IgG 66 kDa Band Lyme IgG 93 kDa Band Lyme IgM Ab (WB) Lyme Disease IgM Ab Lyme IgM 23 kDa Band Lyme IgM 39 kDa Band Lyme IgM 41 kDa Band 01/09/20 01/09/20 01/10/20 16:50 16:50 06:33 WBC 10.09 RBC 3.98 L Hgb 12.3 Hct 37.0 MCV 93.0 MCH 30.9 MCHC 33.2 RDW Std Deviation 46.5 H RDW Coeff of Kaur 13.6 Plt Count 199 MPV 10.8 H Immature Gran % (Auto) 0.2 Neut % (Auto) 79.8 Lymph % (Auto) 14.4 [place] % (Auto) 5.1 Eos % (Auto) 0.4 Baso % (Auto) 0.1 Neut # (Auto) 8.06 H Lymph # (Auto) 1.45 [place] # (Auto) 0.51 Eos # (Auto) 0.04 Baso # (Auto) 0.01 Immature Gran # (Auto) 0.02 PT INR D-Dimer Sodium Potassium Chloride Carbon Dioxide Anion Gap BUN Creatinine Est Cr Clr Drug Dosing Est GFR ( Amer) Est GFR (Non-Af Amer) BUN/Creatinine Ratio Glucose Calcium Magnesium Total Bilirubin AST ALT Alkaline Phosphatase Troponin I NT-Pro-B Natriuret Pep Total Protein Albumin Globulin Albumin/Globulin Ratio Lipase TSH HCG, Qual Negative Lyme Disease IgG Ab Positive A Lyme IgG (Western Blot) Pending Lyme IgG 18 kDa Band Pending Lyme IgG 23 kDa Band Pending Lyme IgG 28 kDa Band Pending Lyme IgG 30 kDa Band Pending Lyme IgG 39 kDa Band Pending Lyme IgG 41 kDa Band Pending Lyme IgG 45 kDa Band Pending Lyme IgG 58 kDa Band Pending Lyme IgG 66 kDa Band Pending Lyme IgG 93 kDa Band Pending Lyme IgM Ab (WB) Pending Lyme Disease IgM Ab Positive A Lyme IgM 23 kDa Band Pending Lyme IgM 39 kDa Band Pending Lyme IgM 41 kDa Band Pending 01/10/20 01/10/20 06:33 06:33 WBC RBC Hgb Hct MCV MCH MCHC RDW Std Deviation RDW Coeff of Kaur Plt Count MPV Immature Gran % (Auto) Neut % (Auto) Lymph % (Auto) [place] % (Auto) Eos % (Auto) Baso % (Auto) Neut # (Auto) Lymph # (Auto) [place] # (Auto) Eos # (Auto) Baso # (Auto) Immature Gran # (Auto) PT 11.8 INR 1.1 D-Dimer Sodium 138 Potassium 4.4 Chloride 108 H Carbon Dioxide 26 Anion Gap 4.0 BUN 10 Creatinine 0.71 Est Cr Clr Drug Dosing 108.9 Est GFR ( Amer) 127.9 Est GFR (Non-Af Amer) 110.4 BUN/Creatinine Ratio 14.5 Glucose 110 H Calcium 8.5 Magnesium Total Bilirubin 0.7 AST 113 H ALT 239 H Alkaline Phosphatase 95 Troponin I NT-Pro-B Natriuret Pep Total Protein 6.2 L Albumin 3.2 L Globulin 3.0 Albumin/Globulin Ratio 1.1 Lipase TSH HCG, Qual Lyme Disease IgG Ab Lyme IgG (Western Blot) Lyme IgG 18 kDa Band Lyme IgG 23 kDa Band Lyme IgG 28 kDa Band Lyme IgG 30 kDa Band Lyme IgG 39 kDa Band Lyme IgG 41 kDa Band Lyme IgG 45 kDa Band Lyme IgG 58 kDa Band Lyme IgG 66 kDa Band Lyme IgG 93 kDa Band Lyme IgM Ab (WB) Lyme Disease IgM Ab Lyme IgM 23 kDa Band Lyme IgM 39 kDa Band Lyme IgM 41 kDa Band ECG Additional Comments: EKGs reviewed-- second degree heart block Telemetry reviewed-- Second degree heart block 40-50s PG Care Time/CCT Total # of Minutes Spent Total Time Spent with Patient: Total time spent is greater than 50% in coordination of care (as documented) at patient's floor/unit and/or counseling patient: Coding Level of Care Code 21444 Inpt Consult Level 4 Diagnoses Lyme disease A69.20 Lyme carditis A69.29; I51.89
--- NOTE | 2020-01-10 11:30 | XCELERA ---
[id number]
[2020-01-10] MEDS ORDERED: cefTRIAXone SODIUM 2,000 MG in DEXTROSE 5% 50 ML IV SCH (20:00)
[2020-01-11 06:46] LABS: Basophils # (auto) 0.02 K/uL (0-0.2); Basophils % (auto) 0.3 %; Eosinophils # (auto) 0.17 K/uL (0-0.5); Eosinophils % (auto) 2.3 %; Hematocrit (blood only) 36.7 % (37-47); Hemoglobin 12.2 g/dL (12.0-16.0); Immature Granulocytes # (auto) 0.02 K/uL (0.00-0.02); Immature Granulocytes % (auto) 0.3 %; Lymphocytes # (auto) 1.97 K/uL (1.2-3.4); Mean Corpuscular Hgb Conc 33.2 g/dL (32-36); Mean Corpuscular Volume 93.1 fL (80-100); Mean Platelet Volume 10.6 fL (7.4-10.4); Monocytes # (auto) 0.69 K/uL (0.11-0.59); Monocytes % (auto) 9.5 %; Neutrophils # (auto) 4.42 K/uL (1.4-6.5); Neutrophils % (auto) 60.6 %; Platelet Count 211 K/uL (130-400); RDW Coefficient of Variation 13.7 % (11.5-14.5); RDW Standard Deviation 47.3 fL (36.4-46.3); Red Blood Count 3.94 M/uL (4.2-5.4); White Blood Count 7.29 K/uL (4.8-10.8)
[2020-01-11 07:14] LABS: Albumin Level 3.4 gm/dl (3.4-5.0); BUN Creatinine Ratio 13.4 (10-20); Calcium 8.3 mg/dl (8.5-10.1); Est GFR (African American) 130.1; Est GFR (Non-African American) 112.3; Potassium 3.9 mmol/L (3.5-5.1)
[2020-01-11 07:17] LABS: Albumin Globulin Ratio 1.1 (0.9-2); Bilirubin,Total 0.5 mg/dl (0.2-1); Globulin 3.1 gm/dl (2.5-4.0); Total Protein 6.5 gm/dl (6.4-8.2)
--- NOTE | 2020-01-11 08:48 | Electrocardiogram Report ---
Test Reason : Blood Pressure : / mmHG Vent. Rate : 066 BPM Atrial Rate : 066 BPM P-R Int : 238 ms QRS Dur : 080 ms QT Int : 440 ms P-R-T Axes : 074 100 013 degrees QTc Int : 461 ms Sinus rhythm with 2nd degree A-V block (Mobitz I) Rightward axis Abnormal ECG When compared with ECG of 20-FEB-2013 14:35, 2nd degree AV block is new Questionable change in QRS axis T wave inversion now evident in Inferior leads Confirmed by Toan Guerrier ([id number]) on 01/11/2020 8:48:29 AM Referred By: REFERRED SELF Confirmed By:Toan Guerrier
--- NOTE | 2020-01-11 08:53 | Electrocardiogram Report ---
Test Reason : Blood Pressure : / mmHG Vent. Rate : 062 BPM Atrial Rate : 062 BPM P-R Int : 000 ms QRS Dur : 082 ms QT Int : 404 ms P-R-T Axes : 082 097 -10 degrees QTc Int : 410 ms Sinus rhythm with 2nd degree A-V block (Mobitz I) Rightward axis Abnormal QRS-T angle, consider primary T wave abnormality Abnormal ECG When compared with ECG of 09-JAN-2020 16:46, (unconfirmed) No significant change Confirmed by Toan Guerrier ([id number]) on 01/11/2020 8:53:24 AM Referred By: REFERRED SELF Confirmed By:Toan Guerrier
--- NOTE | 2020-01-11 09:08 | Electrocardiogram Report ---
Test Reason : Blood Pressure : / mmHG Vent. Rate : 048 BPM Atrial Rate : 048 BPM P-R Int : 274 ms QRS Dur : 076 ms QT Int : 466 ms P-R-T Axes : 080 101 018 degrees QTc Int : 416 ms Sinus bradycardia with 2:1 A-V conduction with Premature ventricular complexes Rightward axis Pulmonary disease pattern Abnormal ECG When compared with ECG of 09-JAN-2020 19:47, (unconfirmed) Premature ventricular complexes are now Present 2:1 AVB is now present Confirmed by Toan Guerrier ([id number]) on 01/11/2020 9:08:49 AM Referred By: REFERRED SELF Confirmed By:Toan Guerrier
--- NOTE | 2020-01-11 09:17 | Electrocardiogram Report ---
Test Reason : Blood Pressure : / mmHG Vent. Rate : 054 BPM Atrial Rate : 080 BPM P-R Int : 246 ms QRS Dur : 080 ms QT Int : 406 ms P-R-T Axes : 079 093 -23 degrees QTc Int : 385 ms Sinus rhythm with 2nd degree A-V block (Mobitz II) Rightward axis Nonspecific T wave abnormality Inferior leads Abnormal ECG When compared with ECG of 10-JAN-2020 01:37, Premature ventricular complexes are no longer Present 2:1 AV block no longer present Inverted T waves have replaced nonspecific T wave abnormality in Inferior leads Confirmed by [place] ([id number]) on 01/11/2020 9:16:57 AM Referred By: REFERRED SELF Confirmed By:Shady [place]
--- NOTE | 2020-01-11 15:58 | Cardiology Progress Note ---
Date of Service January 11, 2020 Assessment & Plan (1) Second degree atrioventricular block, Mobitz (type) I: She continues to have second-degree AV block, it appears to be Mobitz 1 AV block. There has been a gradual improvement in her heart rate since admission with less 2-1 AV block over the past 24 hours. This suggests a response to antibiotic therapy. From the standpoint of her AV block I think she could go home (she has never been symptomatic), although I will defer to where it is best to administer the antibiotics if they need to be intravenous. Admission and Anticipated Discharge Date Admission Date: January 09, 2020 Subjective She is feeling well today, she has no symptoms related to her heart block. She has no cardiovascular complaints. Physical Exam Physical Exam: Constitutional: Alert, cooperative and in no distress. HEENT: Unremarkable Neck: No jugular venous distention, carotid pulses are irregular but otherwise normal and equal bilaterally without bruits. Pulmonary: Clear to auscultation bilaterally. Cardiac: Irregular rhythm with no murmur, gallop or rub. Abdomen: Soft, nontender with normal bowel sounds. Extremities: No edema. Distal pulses intact. Neurologic: No focal findings. Gait is steady. Skin: No rash, ecchymoses or petechiae. Results & Data ([facility]) Vital Signs (Past 12 Hours) Vital Signs Temp Pulse Pulse Pulse Resp BP Pulse Ox 01/11/20 15:45 36.4 C L 64 21 108/70 98 01/11/20 12:02 36.5 C 73 19 115/69 100 01/11/20 09:00 53 L 01/11/20 08:10 36.7 C 61 18 118/68 97 Laboratory Results Cardiac Enzymes 01/11/20 Range/Units 06:20 AST 63 H (15-37) U/L CBC 01/11/20 Range/Units 06:20 WBC 7.29 (4.8-10.8) K/uL RBC 3.94 L (4.2-5.4) M/uL Hgb 12.2 (12.0-16.0) g/dL Hct 36.7 L (37-47) % Plt Count 211 (130-400) K/uL Neut # (Auto) 4.42 (1.4-6.5) K/uL Lymph # (Auto) 1.97 (1.2-3.4) K/uL [place] # (Auto) 0.69 H (0.11-0.59) K/uL Eos # (Auto) 0.17 (0-0.5) K/uL Baso # (Auto) 0.02 (0-0.2) K/uL Comprehensive Metabolic Panel 01/11/20 Range/Units 06:20 Sodium 139 (136-145) mmol/L Potassium 3.9 (3.5-5.1) mmol/L Chloride 109 H (98-107) mmol/L Carbon Dioxide 27 (21-32) mmol/L BUN 9 (7-18) mg/dl Creatinine 0.70 (0.6-1.2) mg/dl Glucose 96 (70-99) mg/dl Calcium 8.3 L (8.5-10.1) mg/dl AST 63 H (15-37) U/L ALT 191 H (12-78) U/L Alkaline Phosphatase 81 (45-117) U/L Total Protein 6.5 (6.4-8.2) gm/dl Albumin 3.4 (3.4-5.0) gm/dl Intake and Output 01/11/20 01/11/20 01/11/20 06:59 14:59 22:59 Intake Total 200 / 2410 1300 / 1300 Balance 200 / 2409 1300 / 1300 Intake: Oral 200 / 2340 1300 / 1300 Other: Weight 71.2 kg Diagnostic Findings Telemetry: Sinus rhythm with second-degree AV block. Overall a gradual increase in heart block and improved conduction since admission. PG Care Time/CCT Total # of Minutes Spent Total Time Spent with Patient: Total time spent is greater than 50% in coordination of care (as documented) at patient's floor/unit and/or counseling patient: Coding Level of Care Code 63632 Subseq Hosp Care Lvl 2 Diagnoses Second degree atrioventricular block, Mobitz (type) I I44.1
--- NOTE | 2020-01-11 22:59 | Discharge Summary ---
Date of Service January 11, 2020 Admission HPI Per Admitting Provider 34 yo F no significant PMHx presented to ED from primary care office for abnormal EKG in office. She reports that for two days she has had "intermittent R lower rib pain" that will improve with Aleve, with associated pain with deep inspiration but no CP or baseline SOB. However she felt "something was not right" and so she went to primary care office who found she had "irregular rhythm and conduction abnormality" on EKG and sent her to ED. In ED found to have intermittent 2nd degree heart block both on telemetry and on EKG, transaminitis, elevated d-dimer without evidence of PE on CTA, CTAP with mild ascites and periportal edema, CXR negative for acute process. Lyme IgG and IgM antibodies positive. Patient does not recall being bitten by a tick, and does not recall a rash, however does spend a lot of time outside and near wooded areas. On time of interview patient does not endorse CP, SOB, recent fevers or chills, nausea or vomiting, constipation or diarrhea, headaches or dizziness, muscle aches. Case discussed with Cardiology (Dr. Steinberg) and hospitalist service consulted for admission for continuous cardiac monitoring, Echo and Cardiology consult AM, IV Abx for suspected Lyme carditis. Admission Exam Per Admitting Provider Constitutional: WD/WN, vitals as above Eyes: PERRL, conjunctivae normal, anicteric sclerae ENMT: external ear and nose normal, oropharynx normal Neck: normal visual inspection Respiratory: normal respiratory effort; no respiratory distress and no cough Auscultation: + wheezes (right lung base); no crackles Cardiovascular: HR regularly irregular, no murmurs appreciated, no peripheral edema Gastrointestinal (Abdomen): Inspection/Auscultation: normal bowel sounds; abdomen not distended Percussion/Palpation: + abdomen tender (RUQ) and abdomen soft; no guarding Musculoskeletal: no cyanosis or clubbing, extremities motor strength 5/5 Skin: no rashes, warm and dry Neurologic: AAOx3, normal speech. PERRLA, EOMI, no nystagmus. Normal visual acuity bilaterally. Bilateral UE, LE, and face without sensory or motor deficits. No tremor. Psychiatric: A+Ox3, euthymic affect Principal Diagnosis Lyme carditis Discharge Exam General: A&Ox3. NAD. Cooperative. HEENT: Atraumatic, normocephalic. Moist mucous membranes. Pulm: CTAB. -wheezes, -rales, -rhonchi. Symmetrical chest rise. No increase work of breathing. No respiratory distress. Cardiac: bradycardic rate, regular rhythm, -mrg. Radial pulses intact and symmetrical. No LE edema Abdominal: Nontender, nondistended, soft. Discharge Data Allergies Allergy/AdvReac Type Severity Reaction Status Date / Time No Known Allergies Allergy Verified 01/12/20 09:47 Consultations 01/09/20 22:18 ED Decision to Admit Stat 01/09/20 22:50 Consult Cardiology Routine Consult Case Management - Discharge Planning Routine Ordered Studies 01/09/20 CT abdomen w IV con Stat 01/09/20 17:42 CT angio chest PE protocol Stat Hospital Course (1) Lyme carditis: Aundrea Otero is a healthy 34 year old female who was referred to ED by PCP for abnormal ECG and bradycardia. To Do After Discharge: -course of Antibiotics. PICC for IV roceph x 21 days. If ecg resolution of block, can transition to PO. Watch for signs of infection of PICC -check AST/AST and ecg in a week -consider repeating echo in a month -f/u thyroid nodules Lyme Carditis: She had a brief episode of chest pain prior to admission that resolved and didn't reoccur during admission. While here, she had been asymptomatic aside from bradycardia in the 40s. He ecg showed 2nd degree AV block with some variation day to day. TTE had normal EF and ventricular function and size. The diagnosis was most consistent for lyme carditis given the positive IgM and IgG antibodies and ecg findings and consistent history of frequently going to [facility] [place] (but no recall of tick bite). - Discharged home on 21 days IV Rocephin 2g daily. Arranged outpatient infusion of abx at the [facility]. - to have EKG monitoring as outpatient by PCP and if second degree AV block resolved - to switch to oral doxycycline for total 21 days of abx course. Transaminitis with RUQ pain, likely secondary to Lyme -On arrival patient's AST 124, ALT 253. -endorsed some R rib discomfort w/ deep palpation, but denied subjective pain on subsequent days -CT-AP: No evidence of cholecystitis; diffusely heterogeneous liver with periportal edema and small volume of abdominal ascites. -No history of liver disease, does not drink alcohol. -LFT downtrended through the admission. Thyroid nodules: - No prior hx of thyroid disease - Normal TSH in ED. - CT chest showed multinodular thyroid, with largest nodule involving the right thyroid measuring up to 1.4 cm. - outpatient follow up. Code Status: FULL CODE FEN/GI: Regular DVT ppx: low risk given age, no other comorbidities; SCDs. She did not show signs or symptoms of VTE during the admission. Dispo: PCU during the stay. Discharged home. Total Time Total Time Spent Total Time Spent (In Minutes): Please refer to attending documentation. Discharge Plan Discharge Items Patient Disposition: Home - Self-Care Reason For Visit: LYME CARDITIS CARDIAC CONDUCTION ABNORMALITY Discharge Diagnosis: Lyme carditis Activity: Resume your previous activity Non-emergency contact: Primary Care Provider Call non-emergency contact if: you have any medication questions, your symptoms worsen, your pain is not controlled, your pain is worsening, your pain is unusual for you, your pain is concerning for you, you have a fever and your wound has increased redness Follow-up/Referrals: Vanita Hall MD [Primary Care Provider] - Diet: Regular Addtl Attending Provider Instructions: You are seen in the hospital after your primary care doctor referred you to the ED for an abnormal EKG finding. You are found to have positive Lyme testing, and were admitted and treated for Lyme disease with Lyme carditis. You were clinically improving at time of discharge, and have been discharged to complete antibiotics as noted below. You have had follow-up with your primary care provider as noted below. You have been prescribed a medication, Rocephin. You will receive Rocephin 2 g daily every 24 hours for 3 weeks. A special ultrasound-guided IV has been placed for you to receive this infusion. Please return to the infusion center as discussed during admission for your daily dose of medications. If your EKG returns completely to normal it is possible that this may be converted to a oral pill at that time. Your primary care doctor will discuss this with you further at follow-up. A follow-up appointment has been made for you with your primary care provider, Dr. Hall as above. Please keep this appointment. You should have a follow-up EKG to check your heart rhythm. This can be done either by your primary care doctor at your outpatient follow-up, or in approximately 1 week at the infusion center. Please discuss this with your primary care doctor further at follow-up. You should have a repeat check of your AST/ALT (liver enzymes) in approximately 1 week. Please discuss this recheck with your primary care provider at your follow-up visit. If you develop any new or worsening symptoms including fever, chills, sweats, chest pain, chest pressure, difficulty breathing, uncontrolled nausea/vomiting, rash, wheezing, passing out or nearly passing out, bleeding, black/bloody bowel movements, or other new or concerning symptoms please call your primary care physician at [phone], or call 911 for re-evaluation in the emergency department if you are very concerned. Pending Studies at Discharge: Yes Studies:: Repeat EKG, CMP in about 1 week Stand-Alone Forms: My [facility], Smoking Cessation Medications and DC Order Prescriptions: New ceftriaxone 2 gram recon soln 2 gm IV DAILY 20 Days Qty: 20 RF: 0 No Action No Known Home Medications RF: 0 Discharge Orders: Discharge Order (Routine); Ordered 01/11/20 Ordered By: Presley Piper Admission Data Admit Date/Time: 01/09/20 21:13 Attending Provider: Florina Devi Admit Provider: Keke Reyes Primary Care Provider: Vanita Hall Other Providers: Noreen Castro Alexander W. Other Interventions: Discharge Summary Assessment (RN) Last Done: 01/11/20 16:25 DC Date/Time DO NOT enter until pt leaves facility: 01/11/20 16:40 Supervising Physician Co-Signing Physician Notes Resident Physician Supervision Note: I independently interviewed and examined the patient and verified the rajan history and physical, reviewed labs and image studies, discussed the case with the resident Dr. Louis and agree with the findings and care plan. Time spent in discharge 35 min Resident Activity Tracking Resident Involvement: Resident Care Provided Care Provided: Adult Hospital Medicine
[2020-01-12 16:44] LABS: 18KDIGG Band NON-REACTIVE; 23KDIGG Band REACTIVE; 23KDIGM Band REACTIVE; 28KDIGG Band NON-REACTIVE; 30KDIGG Band NON-REACTIVE; 39KDIGG Band NON-REACTIVE; 39KDIGM Band REACTIVE; 41KDIGG Band REACTIVE; 41KDIGM Band REACTIVE; 45KDIGG Band NON-REACTIVE; 58KDIGG Band NON-REACTIVE; 66KDIGG Band NON-REACTIVE; 93KDIGG Band NON-REACTIVE; Lyme Antibodies, WB IgG NEGATIVE (NEGATIVE); Lyme Antibodies, WB IgM POSITIVE (NEGATIVE)
== END 2020-01-11 16:40 | disposition home or self-care (01) | DRG 869 ==
LOC: ED 16:37 → SUATTDRO 21:13 → 2S 21:13